=== PATIENT | male | born 1975 | race Caucasian/White ===

== ENCOUNTER 2020-12-02 00:24 | Emergency (ER) | payer OTHER ==
[2020-12-02 00:40] VITALS: PULSE 84; TEMP 97.9; BMI 31.0
[2020-12-02 04:18] LABS: HEMATOCRIT 42.5 % (35.4-49); HEMOGLOBIN 14.6 GM/dL (11.7-16.9); MCH 31.3 pg (25.7-33.7); MCHC 34.4 g/dl (32.0-35.9); MEAN CELL VOLUME 91.1 fl (80-96); MEAN PLT VOLUME 8.3 fl (7.5-11.1); PLATELET COUNT 273 K/MM3 (134-434); RBC 4.67 M/mm3 (4.00-5.60); RDW 12.8 % (11.9-15.9); WHITE BLOOD COUNT 6.9 K/mm3 (4.0-10.0)
[2020-12-02 04:33] LABS: POTASSIUM 4.5 mmol/L (3.5-5.1)
[2020-12-02 04:34] LABS: CALCIUM 9.3 mg/dL (8.5-10.1)
[2020-12-02 04:35] LABS: ALBUMIN 3.9 g/dl (3.4-5.0); BLOOD UREA NITROGEN 13.7 mg/dL (7-18)
[2020-12-02 04:39] LABS: BILIRUBIN,TOTAL 0.3 mg/dL (0.2-1)
[2020-12-02 08:37] VITALS: BP 102/50
== END 2020-12-02 10:00 | disposition short-term general hospital (02) ==
LOC: JER 00:24
DX: J34.81 Nasal mucositis (ulcerative) (principal); F11.10 Opioid abuse, uncomplicated; J32.9 Chronic sinusitis, unspecified
CPT/HCPCS: 36415; 70450-TC; 70487-TC; 80053; 85027; 99284-25

== ENCOUNTER 2022-01-12 14:19 | Emergency (ER) | payer OTHER ==
[2022-01-12 14:39] VITALS: BP 100/68; PULSE 91; TEMP 98.3; BMI 32.5
[2022-01-12] MEDS ORDERED: ACETAMINOPHEN 500 MG TABLET (FP) PO ONE (15:11)
[2022-01-12] MEDS ORDERED: ACETAMINOPHEN 325 MG TABLET (FP) ONE (15:38)
[2022-01-12] MEDS ORDERED: ACETAMINOPHEN 325 MG TABLET (FP) PO ONE (15:54)
[2022-01-12 16:22] LABS: HEMATOCRIT 41.9 % (35.4-49); HEMOGLOBIN 14.8 GM/dL (11.7-16.9); MCH 31.2 pg (25.7-33.7); MCHC 35.2 g/dl (32.0-35.9); MEAN CELL VOLUME 88.6 fl (80-96); PLATELET COUNT 226 10^3/uL (134-434); RBC 4.73 M/mm3 (4.00-5.60); RDW 12.2 % (11.9-15.9); WHITE BLOOD COUNT 7.2 K/mm3 (4.0-10.0)
[2022-01-12 16:55] LABS: CALCIUM 9.3 mg/dL (8.5-10.1)
[2022-01-12 16:56] LABS: ALBUMIN 3.9 g/dl (3.4-5.0); BLOOD UREA NITROGEN 12.2 mg/dL (7-18)
[2022-01-12 16:59] LABS: CREATININE 1.2 mg/dL (0.55-1.3)
[2022-01-12 17:00] LABS: BILIRUBIN,TOTAL 0.4 mg/dL (0.2-1); TOT PROT 6.4 g/dl (6.4-8.2)
== END 2022-01-12 17:46 | disposition home or self-care (01) ==
LOC: JER 14:19
DX: M25.551 Pain in right hip (principal); G89.28 Other chronic postprocedural pain
CPT/HCPCS: 36415; 73502-TC-RT-FY; 80053; 85027; 99284-25

== ENCOUNTER 2022-02-02 12:30 | Emergency (ER) | payer OTHER ==
[2022-02-02 13:05] VITALS: BP 107/71; PULSE 89; TEMP 99; BMI 32.5
[2022-02-02] MEDS ORDERED: predniSONE 20 MG TABLET (UD) PO ONE (14:46)
[2022-02-02] MEDS ORDERED: predniSONE 20 MG TABLET (UD) ONE (14:48)
== END 2022-02-02 14:57 | disposition home or self-care (01) ==
LOC: JERFT 12:30
DX: L23.7 Allergic contact dermatitis due to plants, except food (principal)
CPT/HCPCS: 99283-25

== ENCOUNTER 2023-07-25 16:37 | Emergency (ER) | payer OTHER ==
[2023-07-25 16:46] VITALS: BP 144/100; PULSE 97; RESP 20; TEMP 98.5; BMI 34.0
[2023-07-25] MEDS ORDERED: KETOROLAC TROMETHAMINE 15 MG/ML VIAL IVPUSH ONE (17:23)
[2023-07-25] MEDS ORDERED: SODIUM CHLORIDE 0.9% 500 ML INFUS.BAG IV ONE (17:23)
[2023-07-25 18:06] LABS: BASO % 0.4 % (0-2.0); EOS % 1.9 % (0-4.5); HEMOGLOBIN 15.2 GM/dL (11.7-16.9); LYMPH % 10.7 % (8-40); MCH 30.5 pg (25.7-33.7); MCHC 34.5 g/dl (32.0-35.9); MEAN CELL VOLUME 88.5 fl (80-96); MEAN PLT VOLUME 9.2 fl (7.5-11.1); MONO % 8.1 % (3.8-10.2); NEUT % 78.9 % (42.8-82.8); PLATELET COUNT 212 10^3/uL (134-434); RBC 4.98 M/mm3 (4.00-5.60); RDW 12.8 % (11.9-15.9); WHITE BLOOD COUNT 9.8 K/mm3 (4.0-10.0)
[2023-07-25 18:08] LABS: EPI CELLS 3 /uL (0-25.1); HYALINE CASTS 0 /uL (0-3.1); URINE APPEARANCE CLEAR; URINE BACTERIA 9 /uL (0-1359); URINE BILIRUBIN NEGATIVE (NEGATIVE); URINE COLOR YELLOW; URINE GLUCOSE (UA) NEGATIVE (NEGATIVE); URINE KETONE NEGATIVE (NEGATIVE); URINE LEUK ESTERASE NEGATIVE (NEGATIVE); URINE NITRITE NEGATIVE (NEGATIVE); URINE PROTEIN NEGATIVE (NEGATIVE); URINE RBC 312 /uL (0-23.9); URINE UROBILINOGEN 0.2 mg/dL (0.2-1.0); URINE WBC 12 /uL (0-25.8)
[2023-07-25] MEDS ORDERED: KETOROLAC TROMETHAMINE 15 MG/ML VIAL ONE (18:09)
[2023-07-25 18:24] LABS: POTASSIUM 4.2 mmol/L (3.5-5.1)
[2023-07-25 18:26] LABS: BLOOD UREA NITROGEN 20.6 mg/dL (7-18)
[2023-07-25 18:27] LABS: ALBUMIN 3.8 g/dl (3.4-5.0)
[2023-07-25] MEDS ORDERED: ACETAMINOPHEN 1000 MG/100 ML BAG IVPB ONE (18:27)
[2023-07-25 18:30] LABS: CREATININE 1.5 mg/dL (0.55-1.3)
[2023-07-25 18:31] LABS: BILIRUBIN,TOTAL 0.5 mg/dL (0.2-1); TOT PROT 6.2 g/dl (6.4-8.2)
[2023-07-25] MEDS ORDERED: ACETAMINOPHEN INJECTION 100 ML IVPB ONE (18:46)
[2023-07-25] MEDS ORDERED: LACTATED RINGERS SOLUTION 1000 ML INFUS.BAG IV ONE (18:51)
[2023-07-25] MEDS ORDERED: morphine CARPU-JECT 4 MG/1 ML DISP.SYRIN IVPUSH ONE (20:15)
[2023-07-25] MEDS ORDERED: morphine SULFATE 4 MG/ML VIAL ONE (20:18)
== END 2023-07-25 22:07 | disposition home or self-care (01) ==
LOC: JER 16:37
PROC: 3E033NZ Introduction of Analgesics, Hypnotics, Sedatives into Peripheral Vein, Percutaneous Approach (ICD-10-PCS; principal; 2023-07-25)
PROC: 3E0333Z Introduction of Anti-inflammatory into Peripheral Vein, Percutaneous Approach (ICD-10-PCS; 2023-07-25)
PROC: 3E033GC Introduction of Other Therapeutic Substance into Peripheral Vein, Percutaneous Approach (ICD-10-PCS; 2023-07-25)
DX: R10.9 Unspecified abdominal pain (principal); N13.2 Hydronephrosis with renal and ureteral calculous obstruction; R05.9 Cough, unspecified; Z20.822 Contact with and (suspected) exposure to COVID-19
CPT/HCPCS: 0241U-QW; 36415; 71046-TC-FY; 74176-TC; 80053; 81003; 85025; 87086; 99285-25